=== PATIENT | female | born 1995 | race Caucasian/White ===

== ENCOUNTER 2019-07-11 12:41 | Emergency (ER) | payer SELFPAY ==
[~2019-07-11] VITALS: Ht 167.6 cm; Wt 84.1 kg
[2019-07-11 12:56] VITALS: BP 113/73
--- NOTE | 2019-07-11 13:04 | NUR ---
24/F BIB FAMILY C/O RECURRING HEADACHE THROBBING PRESSURE WITH BLURRED VISION X 5 DAYS. SEEN AT [facility] YESTERDAY; BUT PAIN CONTINUES PER PT. DENIES RECENT INJURY. PATIENT STATES PAIN OF 10/10 AT THIS TIME; PATIENT POSITIONED FOR COMFORT; HOB ELEVATED; BEDRAILS UP X1; BED DOWN. ER MD MADE AWARE OF PT STATUS.
[2019-07-11] MEDS ORDERED: ONDANSETRON 4 MG/2 ML VIAL IVP ONE (14:05)
[2019-07-11] MEDS ORDERED: NACL 0.9% 1,000 ML IV ONE (14:05)
[2019-07-11] MEDS ORDERED: MORPHINE SULFATE 4 MG/ML SYR IVP ONE (14:05)
[2019-07-11 14:46] LABS: ANION GAP 11.5 (8-16); CARBON DIOXIDE 26.5 mmol/L (21-32); CREATININE 0.9 mg/dL (0.6-1.3)
--- NOTE | 2019-07-11 15:18 | NUR ---
PT TAKEN TO CT VIA W/C, ACCOMPANIED BY HOME AIDE.
--- NOTE | 2019-07-11 18:00 | NUR ---
Patient discharged with v/s stable. Written and verbal after care instructions given and explained. Patient alert, oriented and verbalized understanding of instructions. Ambulatory with steady gait. All questions addressed prior to discharge. ID band removed. Patient advised to follow up with PMD. Rx of FIORICET given. Patient educated on indication of medication including possible reaction and side effects. Opportunity to ask questions provided and answered.
[2019-07-11 18:07] VITALS: BP 120/81
== END 2019-07-11 18:00 | disposition home or self-care (01) ==
LOC: MED 12:41
DX: R51 Headache (principal)
CPT/HCPCS: 36415; 70460; 70491; 80048; 81002; 81025; 96374; 96375; 99284; J2270; J2405; J7030; Q9967